=== PATIENT | female | born 1980 | race Caucasian/White ===

== ENCOUNTER 2020-05-08 01:45 | Outpatient (CLI) | payer OTHER, SELFPAY ==
[2020-05-08 16:16] LABS: SARS-CoV-2 RNA PCR Negative
== END 2020-05-08 01:46 | disposition home or self-care (01) ==
LOC: ANHCOVIDDT 01:46
PROVIDERS: Visit Provider Obstetrics & Gynecology
DX: Z01.812 Encounter for preprocedural laboratory examination (principal); Z11.59 Encounter for screening for other viral diseases
CPT/HCPCS: 87635; C9803; U0003

== ENCOUNTER 2020-05-10 01:18 | Day surgery (SDC) | payer OTHER, SELFPAY ==
[2020-05-05 15:10] VITALS: BMI 20.3
[2020-05-10] VITALS (7 sets, daily range): BP systolic 105–122; BP diastolic 72–82; PULSE 75–110; RESP 12–18; TEMP 36.3–36.8; O2SAT 96–100
--- NOTE | 2020-05-10 08:32 | PM.IMHP ---
H&P: HPI History of Present Illness Date/Time: 05/10/20 08:32 Chief complaint: pelvic pain, hx of endometriosis Narrative: 39 y/ with persistent and worsening pelvic pain. She has a diagnosis of endometriosis and has had several laparoscopies in the past. Her insurance denied coverage of her favorite control pill, LoLoEstrin Fe, so she was switched to Lutera. She has had irregular bleeding now for months afterward, and has had a real increase in her pain. She has no urinary or GI complaints. She has deep dyspareunia. She has no hematuria or dysuria. Review of Systems Review of Systems: All systems reviewed & are unremarkable except as noted in HPI and below PMFSH Past Medical History Medical History (Updated 05/10/20 @ 08:38 by Jean Paul Lazcano MD) Depression Endometriosis determined by laparoscopy Overactive bladder Surgical History Surgical History H/O dilation and curettage History of augmentation mammoplasty History of laparoscopy Social History Social History Smoking status: Never smoker Spiritual care concerns: No Comments Past OB History: 1) ectopic gestation treated medically. 2) of boy weighing 8#12oz. Meds Home Medications and Allergies Home Medications Medication Instructions Recorded Confirmed Type doxycycline hyclate 50 mg PO DAILY 05/05/20 05/05/20 History hydroxyzine HCl 25 mg PO DAILY 05/05/20 05/05/20 History norethindrone-e.estradiol-iron [Lo 1 tablet PO DAILY 05/05/20 05/05/20 History Loestrin Fe] oxybutynin chloride 15 mg PO DAILY 05/05/20 05/05/20 History 21-iron fu-folic acid 1 tablet PO DAILY 05/05/20 05/05/20 History [ Complete] Allergies Allergy/AdvReac Type Severity Reaction Status Date / Time No Known Allergies Allergy Verified 05/05/20 15:10 Exam Const: Orientation/consciousness: patient oriented x3 Other: Well-developed, well-nourished female in no acute distress. Neck: Thyroid: thyroid normal Lymphatic: no lymphadenopathy noted (in neck, axilla or inguinal nodes) Resp: Effort & Inspection: normal respiratory effort Auscultation: clear to auscultation bilaterally Cardio: Rate: regular rate Rhythm: regular rhythm Heart sounds: S1 normal heart sound present and S2 normal heart sound present GI: Other: ABD: Soft, nontender, nondistended. No guarding or rebound tenderness. No hepatosplenomegaly. : General: Yes no CVA tenderness Other: External genitalia: normal female hair distribution, without lesion. Urethral meatus: no lesion, non prolapsed. Bladder: no mass, nontender Vagina: well-estrogenized, without lesion or discharge. No cystocele or rectocele. Cervix: no lesion or discharge. Uterus: small, anteverted, freely mobile, nontender. Tenderness noted in the anterior and posterior cul-de-sac on exam. Adnexa: no mass or tenderness. Anus/perineum: no lesions, nontender Back/Spine/Pelvis: Back: no CVA tenderness Skin: General skin exam: normal color and no rashes or lesions noted Neuro: General: patient oriented x3 Extrem: Other: Extremities: nontender with no edema Psych: Mental Status: mental status grossly normal Affect: normal affect Assessment and Plan Assessment and plan (1) Chronic pelvic pain in female: Code(s): R10.2 - Pelvic and perineal pain; G89.29 - Other chronic pain Status: Acute Assessment and Plan: I have offered her continued medical management vs surgical evaluation/treatment. She prefers the latter. I have offered her a diagnostic laparoscopy, hysteroscopy, D&C. She understands risks of surgery to include risks of anesthesia, risks of pain, infection, bleeding, blood products, thromboembolic phenomena and damage to adjacent structures such as bowel, bladder, ureters, blood vessels and nerves. She understands all these risks and elects to proceed wi
[2020-05-10] MEDS: LACTATED RINGERS 1,000 ML 30 ML IV CONT ×2 (10:25→12:51)
[2020-05-10] MEDS: ACETAMINOPHEN 500 MG TABLET 1000 MG PO (10:27)
[2020-05-10] MEDS: KETOROLAC 15 MG/ML VIAL (*BKC) IV PUSH (10:28)
--- NOTE | 2020-05-10 11:12 | WPDANESEPPF ---
Anes - Initial Pre Proc Eval Procedure: Operation Date: 05/10/20 12:00 Proposed Procedures p Diagnostic Laparoscopy, Hysteroscopy, Dilation And Curettage - Jean Paul Lazcano MD Date/Time: 05/10/20 11:12 Surgeon: Jean Paul Lazcano MD Pre Op Diagnosis: pelvic pain, hx of endometriosis Patient Data Age: 39 Gender: F Height: 5 ft 6 in Weight: 57.6 kg Last Vital Signs Temp 36.8 C 05/10/20 10:15 Pulse 83 05/10/20 10:15 Resp 18 05/10/20 10:15 BP 114/82 05/10/20 10:15 Pulse Ox 100 05/10/20 10:15 Allergies Allergy/AdvReac Type Severity Reaction Status Date / Time No Known Allergies Allergy Verified 05/10/20 10:11 Home Medications Medication Instructions Recorded Confirmed Type doxycycline hyclate 50 mg PO DAILY 05/05/20 05/10/20 History hydroxyzine HCl 25 mg PO DAILY 05/05/20 05/10/20 History norethindrone-e.estradiol-iron [Lo 1 tablet PO DAILY 05/05/20 05/10/20 History Loestrin Fe] oxybutynin chloride 15 mg PO DAILY 05/05/20 05/10/20 History 21-iron fu-folic acid 1 tablet PO DAILY 05/05/20 05/10/20 History [ Complete] Patient hx anesthesia problems: none Family hx anesthesia problems: none PMFSH Past Medical History Medical History Depression Endometriosis determined by laparoscopy Overactive bladder Surgical History Surgical History H/O dilation and curettage History of augmentation mammoplasty History of laparoscopy Social History Social History Smoking status: Never smoker Spiritual care concerns: No Anes - Eval Final PreProcedure Day of Procedure 05/10/20 11:12 Patient weight: normal Heart: regular rate and rhythm Lungs: clear to auscultation Airway: Mallampati scale class 1 Neurological: alert and oriented ASA classification: II Emergent: no Anesthesia type and monitoring: general ETT and standard monitoring Informed Consent: The patient's anesthetic plan and its attendant risks and benefits were discussed with the patient/family/POA. Questions were solicited and answers provided to the satisfaction of the patient/family/POA.
--- NOTE | 2020-05-10 12:52 | PM.PROC ---
Procedure Note - Detailed Date of procedure: 05/10/20 Pre-op diagnosis: pelvic pain, hx of endometriosis Post-op diagnosis: same Procedure performed: Diagnostic laparoscopy Hysteroscopy Dilation and sharp curettage Description of procedure: The patient was taken to the operating room where general endotracheal anesthesia was administered. She was prepared and draped in the usual sterile fashion in the dorsal lithotomy position. The bladder was drained with a red rubber catheter. A sterile speculum was inserted into the vagina and the anterior lip of the cervix was grasped with a single-toothed tenaculum. The acorn uterine manipulator was placed. The speculum was withdrawn. Gloves were changed and attention was turned to the abdomen. An infraumbilical skin incision was made with a scalpel. The abdomen was tented and a 5 millimeter bladeless trocar trocar was advanced under direct laparoscopic visualization. Pneumoperitoneum was administered using carbon dioxide gas. A survey of the pelvis and abdomen yielded the findings noted above. Hemostasis was excellent. The trocar was withdrawn and the gas was allowed to escape. The skin incision was reapproximated using 4-0 Vicryl in interrupted subcuticular fashion. Dermaflex was applied externally. Attention was then redirected to the vagina, where the speculum was reintroduced and the acorn manipulator was withdrawn. Ten mL of 1% lidocaine was administered in a paracervical block. The cervix was then gently dilated using Hegar dilators until an 8 mm dilator could be passed. Hysteroscopy was performed using sterile saline as a distention medium. Findings are as noted above. Sharp curettage was then performed, and endometrial curettings were collected on a Telfa pad and passed off to be sent to pathology. Hemostasis was excellent. Sponge, lap, needle and instrument counts were correct. The patient was awakened and taken to the recovery room in stable condition. I was present and scrubbed through the entire procedure. Implants: None Anesthesia: GETA and local (1% lidocaine paracervical block) Surgeon: Jean Paul Lazcano MD Estimated blood loss (mL): 5 Drains: No Packing: No Pathology: yes (endometrial curettings) Complications: None Condition: stable Disposition: PACU Findings: On laparoscopy, the pelvis was unremarkable. Specifically, the uterus, bilateral tubes, bilateral ovaries, bilateral round and uterosacral ligaments, anterior and posterior cul de sac were all unremarkable. The vermiform appendix was not easily visible. The right upper quadrant anatomy was unremarkable. On hysteroscopy, the endometrial cavity was unremarkable. Both tubal ostia were seen.
== END 2020-05-10 14:15 | disposition home or self-care (01) ==
PROVIDERS: Visit Provider Obstetrics & Gynecology
PROC: 0UDB8ZZ Extraction of Endometrium, Via Natural or Artificial Opening Endoscopic (ICD-10-PCS; CPT 58558; principal; 2020-05-10 12:00)
DX: R10.2 Pelvic and perineal pain (principal); N92.1 Excessive and frequent menstruation with irregular cycle; N85.8 Other specified noninflammatory disorders of uterus; Z87.42 Personal history of other diseases of the female genital tract; F32.9 Major depressive disorder, single episode, unspecified; N32.81 Overactive bladder
CPT/HCPCS: 58558; 49320; 36415; 86850; 86900; 86901; 88305; A9270; J0330; J1100; J1885; J2250; J2405; J2704; J3010; J7030; J7120

== ENCOUNTER 2024-05-26 10:40 | Day surgery (SDC) | payer OTHER, SELFPAY ==
[2024-05-19 14:14] VITALS: BMI 22.0
--- NOTE | 2024-05-19 14:33 | PC.NURSE ---
Addendum entered by Galdino Reyez RN 05/20/24 14:54: Patient is aware of need to skip this friday's dose of Tirzepatide. Original Note: Report to the Outpatient Waiting Room, entrance under the green pavilion located off [facility], at 1045 on 05/26/24. Planned Procedure Time: 1245. Time changes happen often and if your time is changed the preop area will call you the afternoon before. - You and your visitor will be asked to self-screen and do not enter if you have any COVID symptoms. - A mask is optional within the hospital at this time. Patients may have clear liquids (water, carbonated beverages, clear teas, apple juice) until 3 hours prior to surgery with a maximum of 20 ounces. - No food from midnight until time of surgery Take the following medications with a SIP of water the morning of surgery: Venlafaxine/Metoprolol/eye drops DO NOT STOP ANY OF YOUR OTHER PRESCRIPTION MEDICATIONS PRIOR TO SURGERY ?EXCEPT THE FOLLOWING Medications to discontinue per physician n/a Date to take last dose n/a Please no make-up, nail indian, hairspray, perfume, deodorant, or body powder the day of surgery. No jewelry (including any body piercings) or valuables the day of surgery, leave them at home. Please take a shower or bath the night before, or the morning of, surgery with an antibacterial soap. Wear comfortable, loose fitting clothing. - Jewelry must be removed prior to entering the operating room. Rings and piercings that are not removed may be cut off. - The hospital will not accept responsibility for valuables. - Please leave all valuables, including medications, at home the day of surgery. If you are going home after surgery, a licensed hyster driver must drive you home. - NO public transportation without another adult if you receive anesthesia. - We recommend that an adult stay with you for 24 hours following discharge. - We also recommend that you do not drive, make important decision, drink alcoholic beverages, or take any drugs that were not prescribed by your health care provider for at least 24 hours after your discharge time. Follow any additional instructions given to you from your surgeon. If you or anyone in your household have experienced Covid symptoms in the past week, please notify your surgeon or the nurse liaison at the phone number below for possible testing. Telephone instructions given to patient and asked if any additional questions and then verbalized understanding. Patient advised to call surgeon office or pre surgery nurse liaison [phone] if any additional questions.
[2024-05-26] VITALS (8 sets, daily range): BP systolic 93–110; BP diastolic 62–87; PULSE 75–97; RESP 14–22; TEMP 36.2–36.9; O2SAT 98–100
[2024-05-26] MEDS: ACETAMINOPHEN 500 MG TABLET 1000 MG PO (11:21)
[2024-05-26] MEDS: LACTATED RINGERS 1,000 ML 30 ML IV CONT (11:25)
[2024-05-26] MEDS: KETOROLAC 15 MG/ML VIAL (*BKC) IV PUSH (11:35)
[2024-05-26 11:58] LABS: BEDSIDEPREGUCG Negative
--- NOTE | 2024-05-26 12:06 | WPDANESEPPF ---
Anes - Initial Pre Proc Eval Procedure: Operation Date: 05/26/24 12:45 Proposed Procedures p Diagnostic Laparoscopy, Laparoscopic Bilateral Tubal Ligation, - Jean Paul Lazcano MD s Hysteroscopy Dilation and Curettage with Zeynep Endometrial Ablation - Jean Paul Lazcano MD Date/Time: 05/26/24 12:06 Surgeon: Jean Paul Lazcano MD Pre Op Diagnosis: pelvic pain, irregular bleeding, Patient Data Age: 43 Gender: F Height: 1.69 m Weight: 63.5 kg Last Vital Signs Temp 36.9 C 05/26/24 11:47 Pulse 82 05/26/24 11:47 Resp 20 05/26/24 11:47 BP 108/87 05/26/24 11:47 Pulse Ox 98 05/26/24 11:47 O2 Del Method Room Air 05/26/24 11:47 Allergies Allergy/AdvReac Type Severity Reaction Status Date / Time surgical glue AdvReac infections Uncoded 05/26/24 11:18 in wound/skin area surgical tape AdvReac infections Uncoded 05/26/24 11:18 in wound/skin area Home Medications Medication Instructions Recorded Confirmed Type norethindrone 1 mg-ethinyl 1 tablet PO DAILY 05/05/20 05/26/24 History estradiol 10 mcg (24)-iron 10 mcg(2) tablet (Lo Loestrin Fe) celecoxib 200 mg capsule 200 mg PO BID 05/19/24 05/26/24 History hydroxychloroquine 200 mg tablet 200 mg PO BID 05/19/24 05/26/24 History metoprolol tartrate 50 mg tablet 50 mg PO BID 05/19/24 05/26/24 History pantoprazole 40 mg tablet,delayed 40 mg PO DAILY 05/19/24 05/26/24 History release prednisolone acetate 1 % eye 1 drp ophthalmic (eye) BID 05/19/24 05/26/24 History drops,suspension sulfamethoxazole 800 1 tablet PO BID 05/19/24 05/26/24 History mg-trimethoprim 160 mg tablet tirzepatide (weight loss) 5 mg/0.5 5 mg subcut WEEKLY 05/19/24 05/26/24 History mL subcutaneous pen injector (Zepbound) venlafaxine 75 mg tablet 75 mg PO DAILY 05/19/24 05/26/24 History Laboratory Tests 05/26/24 11:47 POC Urine HCG, Qual Negative POC Ur Preg QC Yes Patient hx anesthesia problems: post op nausea/vomiting Family hx anesthesia problems: none Results Review: All pre-operative results and documents have been reviewed as part of the pre-operative evaluation. [facility] Past Medical History Medical History (Updated 05/26/24 @ 12:13 by Marcell Hu DO) Depression Endometriosis determined by laparoscopy Hemochromatosis History of PSVT (paroxysmal supraventricular tachycardia) Overactive bladder Surgical History Surgical History H/O dilation and curettage History of augmentation mammoplasty History of laparoscopy Social History Social History Smoking status: Never smoker Second hand tobacco smoke exposure: No Alcohol intake: former Substance use: never Living arrangements: with family Spiritual care concerns: No Anes - Eval Final PreProcedure Day of Procedure 05/26/24 12:06 Patient weight: normal Heart: regular rate and rhythm Lungs: clear to auscultation Airway: Mallampati scale class 1 Neurological: alert and oriented Last oral intake: >/= 8 hours ASA classification: III Emergent: no Anesthetic plan: proceed Anesthesia type and monitoring: general ETT and standard monitoring Results Review: All pre-operative results and documents have been reviewed as part of the pre-operative evaluation. Informed Consent: The patient's anesthetic plan and its attendant risks and benefits were discussed with the patient/family/POA. Questions were solicited and answers provided to the satisfaction of the patient/family/POA.
--- NOTE | 2024-05-26 12:16 | PM.IMHP ---
H&P: HPI History of Present Illness Date/Time: 05/26/24 12:16 Chief Complaint: Pain and bleeding, desired sterility Narrative: 43 y/o who has taken an oral contraceptive for years. She has had a lot of breakthrough bleeding in the last 6 months. She also has had an increase in pelvic pain. She has a history of endometriosis. She also desires permanent contraception. Review of Systems Review of Systems: All systems reviewed & are unremarkable except as noted in HPI and below PMFSH Past Medical History Medical History (Updated 05/26/24 @ 12:18 by Jean Paul Lazcano MD) Depression Endometriosis determined by laparoscopy Hemochromatosis History of PSVT (paroxysmal supraventricular tachycardia) Menometrorrhagia Overactive bladder Surgical History Surgical History H/O dilation and curettage History of augmentation mammoplasty History of laparoscopy Social History Social History Smoking status: Never smoker Second hand tobacco smoke exposure: No Alcohol intake: former Substance use: never Living arrangements: with family Spiritual care concerns: No Meds Home Medications and Allergies Home Medications Medication Instructions Recorded Confirmed Type norethindrone 1 mg-ethinyl 1 tablet PO DAILY 05/05/20 05/26/24 History estradiol 10 mcg (24)-iron 10 mcg(2) tablet (Lo Loestrin Fe) celecoxib 200 mg capsule 200 mg PO BID 05/19/24 05/26/24 History hydroxychloroquine 200 mg tablet 200 mg PO BID 05/19/24 05/26/24 History metoprolol tartrate 50 mg tablet 50 mg PO BID 05/19/24 05/26/24 History pantoprazole 40 mg tablet,delayed 40 mg PO DAILY 05/19/24 05/26/24 History release prednisolone acetate 1 % eye 1 drp ophthalmic (eye) BID 05/19/24 05/26/24 History drops,suspension sulfamethoxazole 800 1 tablet PO BID 05/19/24 05/26/24 History mg-trimethoprim 160 mg tablet tirzepatide (weight loss) 5 mg/0.5 5 mg subcut WEEKLY 05/19/24 05/26/24 History mL subcutaneous pen injector (Zepbound) venlafaxine 75 mg tablet 75 mg PO DAILY 05/19/24 05/26/24 History Allergies Allergy/AdvReac Type Severity Reaction Status Date / Time surgical glue AdvReac infections Uncoded 05/26/24 11:18 in wound/skin area surgical tape AdvReac infections Uncoded 05/26/24 11:18 in wound/skin area Vital Signs Vital Signs - 24 hr 05/26/24 11:47 Temperature 36.9 C Pulse Rate 82 Respiratory Rate 20 Blood Pressure 108/87 Pulse Oximetry 98 Oxygen Delivery Room Air Exam Const: Orientation/consciousness: patient oriented x3 Other: Well-developed, well-nourished female in no acute distress. Neck: Thyroid: thyroid normal Lymphatic: no lymphadenopathy noted (in neck, axilla or inguinal nodes) Resp: Effort & Inspection: normal respiratory effort Auscultation: clear to auscultation bilaterally Cardio: Rate: regular rate Rhythm: regular rhythm Heart sounds: S1 normal heart sound present and S2 normal heart sound present GI: Other: ABD: Soft, nontender, nondistended. No guarding or rebound tenderness. No hepatosplenomegaly. : General: Yes no CVA tenderness Other: External genitalia: normal female hair distribution, without lesion. Urethral meatus: no lesion, non prolapsed. Bladder: no mass, nontender Vagina: well-estrogenized, without lesion or discharge. No cystocele or rectocele. Cervix: no lesion or discharge. Uterus: small, anteverted, freely mobile, nontender Adnexa: no mass or tenderness. Anus/perineum: no lesions, nontender Back/Spine/Pelvis: Back: no CVA tenderness Skin: General skin exam: normal color and no rashes or lesions noted Neuro: General: patient oriented x3 Extrem: Other: Extremities: nontender with no edema Psych: Mental Status: mental status grossly normal Affect: normal affect
--- NOTE | 2024-05-26 12:20 | WPDHPUPDATE1 ---
History and Physical Update Update Date/Time: 05/26/24 12:20 History and Physical has been reviewed, including an updated exam of the patient. There are NO changes in the patient's condition. Risks, benefits, and alternatives have been discussed and questions answered. Patient agrees to proceed with procedure.
[2024-05-26] MEDS: SCOPOLAMINE 1 MG PATCH 1 PATCH TRANSDERM (12:27)
--- NOTE | 2024-05-26 14:20 | P.OP_ITS ---
Procedure Note - Detailed Date of Procedure 05/26/24 Pre-op Diagnosis Metrorrhagia Pelvic pain Desired sterility Post-op Diagnosis Same Procedure Performed Laparoscopic bilateral tubal ligation with Falope rings Hysteroscopy Dilation and sharp curettage Endometrial ablation Surgeon Jean Paul Lazcano MD Anesthesia General and Local (1% lidocaine) Findings Unremarkable pelvis on laparoscopy. Specifically, normal-appearing uterus, bilateral Fallopian tubes and ovaries, anterior and posterior cul de sac, round and uterosacral ligaments. On hysteroscopy, both tubal ostia were seen. The endometrial cavity was unremarkable. Description of Procedure The patient was taken to the operating room where general endotracheal anesthesia was administered. She was prepared and draped in the usual sterile fashion in dorsal lithotomy position. The bladder was drained with a red rubber catheter. A sterile speculum was placed into the vagina. The anterior lip of the cervix was grasped with a single-tooth tenaculum. The acorn uterine manipulator was placed. The speculum was withdrawn. Gloves were changed and attention was turned the abdomen. An infraumbilical skin incision was made with a scalpel. The abdomen was tented and a 5mm bladeless trocar was advanced under direct laparoscopic visualization. Pneumoperitoneum was administered using carbon dioxide gas. A survey of the pelvis and abdomen revealed the findings noted above. A second skin incision was made in the midline above the symphysis pubis and an 8mm bladeless trocar was advanced under direct laparoscopic visualization. The fallopian tube on the right side was followed out to the f imbriated end for identification. It was then grasped in the midportion with the Falope ring applicator. The Falope ring was tented applied. A good loop of tube was noted to be distal to the ring. Hemostasis was excellent. The device was reloaded and the contralateral tube was similarly identified and ligated. An excellent application was noted here as well. A total of 4mL of 1% lidocaine was infiltrated into the serosa of the proximal tubes for postoperative anesthesia. The ports were withdrawn. The gas was allowed to escape. The skin incisions were reapproximated using interrupted subcuticular sutures of 4 0 Vicryl. Dermaflex was avoided due to her allergy. Attention was redirected to the vagina where the acorn manipulator was withdrawn and the speculum reintroduced. Ten mL of 1% lidocaine was administered in a paracervical block. The cervix was then gently dilated using Hegar dilators until a 7 mm dilator could be passed. Hysteroscopy was performed using sterile saline as a distention medium. Findings are as noted above. Sharp curettage was then performed, and endometrial curettings were collected on a Telfa pad and passed off to be sent to pathology. Finally, the the Zeynep device was advanced and endometrial ablation commenced without difficulty. The device was withdrawn and a second look was taken using the hysteroscope. Excellent coverage of the end ometrial cavity was noted. The tenaculum was removed. Hemostasis was excellent. Sponge, lap, needle and instrument counts were correct. The patient was awakened and taken to the recovery room in stable condition. I was present and scrubbed through the entire procedure. Implants Falope rings x 2 Estimated Blood Loss 5 Drains No Packing No Pathology Yes (Endometrial curettings) Complications None Condition Stable Disposition PACU
[2024-05-26] MEDS: LIDOCAINE HCL 1% LOCAL INJ 20 ML VIAL 14 ML INFILTRATE (14:28)
[2024-05-26] MEDS: fentaNYL CITRATE INJ (*CRX) 100 MCG/2 ML VIAL 25 MCG IV PUSH ×8 (14:40→15:20)
== END 2024-05-26 16:26 | disposition home or self-care (01) ==
PROVIDERS: Visit Provider Obstetrics & Gynecology
PROC: (CPT 58671; principal; 2024-05-26 12:45)
PROC: 0U5B8ZZ Destruction of Endometrium, Via Natural or Artificial Opening Endoscopic (ICD-10-PCS; CPT 58563; 2024-05-26 12:45)
DX: N92.1 Excessive and frequent menstruation with irregular cycle (principal); G89.18 Other acute postprocedural pain; F32.A Depression, unspecified; N80.9 Endometriosis, unspecified; E83.119 Hemochromatosis, unspecified; N32.81 Overactive bladder; Z79.85 Long-term (current) use of injectable non-insulin antidiabetic drugs; Z98.890 Other specified postprocedural states; Z86.79 Personal history of other diseases of the circulatory system
CPT/HCPCS: 58563; 58671; 88305; A4264; A9270; J1885; J2250; J3010; J7120